=== PATIENT | male | born 1950 | race Caucasian/White ===

== ENCOUNTER 2021-12-02 08:32 | Outpatient (CLI) | payer MEDICARE, OTHER ==
[2021-12-02] MEDS ORDERED: CYSTOGRAFIN 300 ML INFUS..BTL UR ONE (08:59)
== END 2021-12-02 20:17 | disposition home or self-care (01) ==
LOC: SRD 08:32
PROVIDERS: ATTEND Urology Pediatric Urology
DX: R97.20 Elevated prostate specific antigen [PSA] (principal)
CPT/HCPCS: 74430; 51600; Q9958